=== PATIENT | female | born 1955 | race Caucasian/White ===

== ENCOUNTER 2020-04-15 07:19 | Day surgery (SDC) | payer OTHER, SELFPAY ==
[2020-04-10 10:21] VITALS: BMI 41.1
--- NOTE | 2020-04-12 08:27 | MHC.SHP ---
Pre-Procedural Eval Section A The patient is an INPATIENT: No The History & Physical has been completed within 30 days and I have reviewed it.: Yes Section B Chief Complaint: Cataracts Left Eye Allergies: Allergies Allergy/AdvReac Type Severity Reaction Status Date / Time codeine Allergy Nausea and Verified 04/10/20 10:28 Vomiting Plan Diagnosis/Plan: Unchanged Patient has been examined and remains a candidate for the planned procedure
--- NOTE | 2020-04-12 11:51 | HO.ANESPROP2 ---
Documented by User: Deanne Hernandez 04/12/20 11:52 HPI - Anesthesia Eval Consult details Narrative: 65yo F for L cataract PCP cleared [facility] Past Medical History Medical History (Updated 04/15/20 @ 09:18 by Flory Spivey) Cancer Diabetes Elevated cholesterol Hepatitis HTN (hypertension) Increased BMI Surgical History Surgical History H/O colonoscopy S/P bilateral breast lumpectomy Social History Social History Smoking Status: Former smoker Smoking Quit Date: 07/2019 Use of substances other than those prescribed or required for medical reasons: Yes Substance Use Frequency: Occasionally Advance Directives Information Provided: No Recently lost weight without trying: No Meds Allergies Allergy/AdvReac Type Severity Reaction Status Date / Time codeine Allergy Rash Verified 04/15/20 09:16 Home Medications Medication Instructions Recorded Confirmed Type atorvastatin 40 mg PO BEDTIME 04/10/20 04/10/20 History diazepam 5 mg PO TID PRN 04/10/20 04/15/20 History lisinopril-hydrochlorothiazide 2 tab PO DAILY 04/10/20 04/10/20 History metformin 500 mg PO BID 04/10/20 04/10/20 History Exam Exam Date and Time: April 12, 2020 1151 Height,Weight and Vital Signs: Height 5 ft 4 in Weight 108.862 kg Assessment and Plan Assessment Anesthesia Assessment: Chart Reviewed Documented by User: Flory Spivey 04/15/20 09:20 [facility] Past Medical History Medical History (Updated 04/15/20 @ 09:18 by Floyr Spivey) Cancer Diabetes Elevated cholesterol Hepatitis HTN (hypertension) Increased BMI Family History Family history of problems with anesthesia: No Surgical History Surgical History H/O colonoscopy S/P bilateral breast lumpectomy History of Problems with Anesthesia: No Social History Social History Smoking Status: Former smoker Smoking Quit Date: 07/2019 Use of substances other than those prescribed or required for medical reasons: Yes Substance Use Frequency: Occasionally Advance Directives Information Provided: No Recently lost weight without trying: No Meds Allergies Allergy/AdvReac Type Severity Reaction Status Date / Time codeine Allergy Rash Verified 04/15/20 09:16 Home Medications Medication Instructions Recorded Confirmed Type atorvastatin 40 mg PO BEDTIME 04/10/20 04/10/20 History diazepam 5 mg PO TID PRN 04/10/20 04/15/20 History lisinopril-hydrochlorothiazide 2 tab PO DAILY 04/10/20 04/10/20 History metformin 500 mg PO BID 04/10/20 04/10/20 History Exam Exam Date and Time: Vital Signs Temp Pulse Resp BP Pulse Ox 04/15/20 08:36 97.9 F 66 18 161/62 H 96 Pertinent Lab Results Pertinent Lab Results: POC- 179 Airway Mallampati Class: III TM Dist: >3cm Neck ROM: Full Denture: Upper Partial: Lower Heart: RRR Lungs: CTAB Assessment and Plan Assessment Anesthesia Assessment: Anesthesia Plan Discussed and Chart Reviewed Final Anesthetic Review NPO: Yes ASA Class: III Final Preanesthetic Review: No Changes in Pt Med Stat, Meds/Allgs Chart Reviewed, Consent Obtained/Reviewed and Anes Risks/Benef Reviewed Patient Risk: Intermediate Procedure Risk: Low Anesthetic Plan Anesthetic Plan: MAC: Disposition: Standard PACU
[2020-04-15 08:36] VITALS: BP 161/62; PULSE 66; RESP 18; TEMP 36.6; O2SAT 96
[2020-04-15] MEDS: Tetracaine HCl/PF 0.5% Oph Sol 4 ML DROPS 1 DROP EYE-LEFT (08:42)
[2020-04-15] MEDS: Cyclopentolate 1 % Ophth Sol 2 ML DRPBTL 1 DROP EYE-LEFT ×3 (08:44→08:55)
[2020-04-15] MEDS: Tropicamide 1 % Ophth Sol 3 ML BTL 1 DROP EYE-LEFT ×3 (08:45→08:56)
[2020-04-15] MEDS: Lactated Ringers 1,000 ML 50 ML IVCONT (08:55)
[2020-04-15 09:04] LABS: Glucose, Whole Blood 179 mg/dL (60-115)
--- NOTE | 2020-04-15 10:57 | HO.PNOPH ---
Ophthalmology Procedure Procedure Ophthalmology Viscoelastic: Shahzad Sotot Dual Pack Pro Ophthalmology Lenses: TECNIS [id number] (21.5) Procedure Notes: PREOPERATIVE DIAGNOSIS: Decreased visual acuity left eye secondary to cataract POSTOPERATIVE DIAGNOSIS: Same PROCEDURE: Left cataract extraction with intraocular lens insertion SURGEON: Anthony Kumar M.D. ANESTHESIA: Topical/MAC ESTIMATED BLOOD LOSS: None COMPLICATIONS: None After obtaining informed consent, the patient was brought to the operation room suite and placed in the supine position. After adequate sedation per anesthesia, topical drops of Tetracaine were given to the left eye. The eye was then prepped and draped in the usual sterile fashion. The operating room microscope was then positioned over the operative eye and a lid speculum placed. A paracentesis was created. Viscoelastic was then instilled into the anterior chamber. A three plane incision was then created temporally, utilizing a 2.85 mm keratome. Capsulotomy forceps were then utilized to create a circular tear capsulotomy. Hydrodissection and hydrodelineation were carried out until adequate mobilization of the nucleus occurred. Phacoemulsification was then utilized to remove the dense central nucleus followed by removal of the cortical material utilizing the automated aspiration irrigation unit. Viscoat elastic was instilled into the posterior capsular bag followed by placement of a posterior chamber intraocular lens without difficulty. The residual Viscoat elastic was then removed utilizing the automated IA machine. The wound was check and found to be watertight. The patient tolerated the procedure well and the lid speculum was removed. Intracameral injection of Vigamox 0.1 mL followed by a subtenon injection of Kenalog-40 0.2 mL were administered. The patient will be seen in the a.m.
[2020-04-15 11:00] VITALS: BP 158/39; PULSE 65; RESP 17; TEMP 36.2; O2SAT 99
[2020-04-15 11:06] VITALS: BP 163/65; PULSE 65; RESP 17; TEMP 36.2; O2SAT 95
--- NOTE | 2020-04-15 16:11 | W.PM.OPN ---
Operative Note Operative Note Narrative: The patient had an ophthalmology?procedure on 04/15/20.? The procedure template fed into the wrong report. Please see ECT progress note 04/15/20 note under neurology section entitled for full ophthalmology procedure note.? The information contained within that report is otherwise complete and accurate.? ?The patient did not have ECT on this date.?
== END 2020-04-15 11:58 | disposition home or self-care (01) ==
PROVIDERS: Ophthalmology; Visit Provider Anesthesiology
PROC: (CPT 66985; principal; 2020-04-15 09:50)
DX: H25.012 Cortical age-related cataract, left eye (principal); I10 Essential (primary) hypertension; E11.9 Type 2 diabetes mellitus without complications; Z79.84 Long term (current) use of oral hypoglycemic drugs; Z79.899 Other long term (current) drug therapy
CPT/HCPCS: 66984; 82947; J2250; J3010; J3300; V2632

== ENCOUNTER → 2023-01-28 16:19 | Outpatient (AMB) | payer MEDICARE, SELFPAY ==
--- NOTE | 2023-01-28 16:23 | MHC.OFFWIV ---
Intake Vital Signs 01/28/23 16:26 BP 130/76 Blood Pressure Location Rt brachial Position Sitting Pulse 82 Pulse Source Pulse Oximeter Pulse Oximetry (%) 95 Oxygen Delivery Method Room Air Intake Visit Reasons: [employer], Poison Halima in Arms Intake Note: Patient here for poison halima on arms Patient Tobacco Use Status: Never used Tobacco Allergies codeine Allergy (Verified 04/15/20 09:16) Rash Do you need a note to return to daycare/school/sports/work: No HPI HPI Comments History of Present Illness Details 67-year-old female presents with worsening spreading poison halima. Has taken prednisone in the past. [facility] Medical History (Updated 04/15/20 @ 09:18 by Flory Spivey MD) Cancer Diabetes Elevated cholesterol Hepatitis HTN (hypertension) Increased BMI Surgical History H/O colonoscopy S/P bilateral breast lumpectomy Social History Patient Tobacco Use Status: Never used Tobacco Review of Systems Const All systems reviewed & are unremarkable except as noted in HPI and below Reports as per HPI Skin/Breast Reports rash Physical Exam Vital Signs: Last Vital Signs Pulse 82 01/28/23 16:26 BP 130/76 01/28/23 16:26 Pulse Ox 95 01/28/23 16:26 Oxygen Delivery Method Room Air 01/28/23 16:26 Const General: cooperative, healthy appearing, no acute distress, well developed and alert Skin Other: Rash on the lower arms extending to the upper arms. Assessment & Plan Assessment & Plan (1) Poison halima dermatitis: Code(s): L23.7 - Allergic contact dermatitis due to plants, except food Plan Rash consistent with poison halima patient requiring prednisone in the past taper prescribed. Discharge instructions, follow up and treatment are discussed with patient in my usual fashion. Alternatives in treatment are also discussed. The patient will return for worsening symptoms or as needed. Advised that any labs/imaging ordered will be followed up on and contact made if further treatment needed. Counseled that patient's condition may require further evaluation and/or treatment. Symptoms of concern for worsening disorder discussed in detail in my customary manner. Patient does verbalize understanding of the plan, there are no apparent barriers to communication. The patient is given the opportunity to ask questions and have them answered to his/her satisfaction Medications: New prednisone 50 mg PO DAILY 4 days 4 tabs 0RF prednisone see taper instructions On days 5-8 take 40 mg or 4 tabs One day 9 take 30 mg or 3 tabs On day 10 take 20 mg or 2 tabs on day 11 take 10 mg or 1 tab 10 mg PO DIRECTED 10 tabs 0RF Patient Instructions: Soothing measure options: ?- Oatmeal baths ?- Cool, wet compresses ?- Ice packs ?- Topical menthol and phenol (calamine lotion) compounds ?- Topical astringents under occlusion dressing to dry weeping lesions ?-They are [id number] treatment such as Burow's solution, Domeboro and Zanfel that can help with symptoms. ?-If the itching is preventing him from sleep, you can use medication such as Benadryl to help keep you from itching at nighttime. Coding Level of Care Code New Pt Level 3 (89278) Diagnoses Poison halima dermatitis L23.7
[2023-01-28 16:26] VITALS: BP 130/76; PULSE 82; O2SAT 95
== END ==
PROVIDERS: Visit Provider Physician Assistant
DX: L23.7 Allergic contact dermatitis due to plants, except food (principal)
CPT/HCPCS: 99203